=== PATIENT | female | born 1940 | race Caucasian/White ===

== ENCOUNTER 2024-08-13 07:08 | Outpatient (CLI) | payer MEDICARE ==
[~2024-08-13] VITALS: Ht 152.4 cm; Wt 54.4 kg
[2024-08-13 07:40] LABS: TOTAL HEMOGLOBIN 12.3 G/dl (12.0-16.0)
[2024-08-13] MEDS: albuterol 2.5 MG/3 ML nebule NEB ONE (08:14)
[2024-08-13 08:18] VITALS: PULSE 78; RESP 18; O2SAT 97
[2024-08-13 08:27] VITALS: PULSE 78; RESP 16
== END 2024-08-13 23:59 | disposition home or self-care (01) ==
LOC: RT 07:08
PROVIDERS: ATTEND Internal Medicine
DX: R06.02 Shortness of breath (principal)
CPT/HCPCS: 85018; 94060; 94727; 94729; 94760